=== PATIENT | female | born 1945 | race Caucasian/White ===

== ENCOUNTER → 2017-03-16 | Outpatient (CLI) | payer OTHER, BC ==
[~2017-03-16] MED LIST: HYDROCODONE-AP1 EAC6 PO; KEFLEX500 MG PO; LIDODERM 5%1 PATC1 TRANSDERM; NORCO 5-325 TA1 EACH PO
== END ==
LOC: ULTRA 07:57
DX: E04.1 Nontoxic single thyroid nodule (principal)

== ENCOUNTER 2018-06-17 09:49 | Emergency (ER) | payer OTHER, BC ==
[~2018-06-17] VITALS: Ht 165.1 cm; Wt 56.2 kg
[2018-06-17 11:25] VITALS: BP 118/69
== END 2018-06-17 11:25 | disposition home or self-care (01) ==
LOC: ER 09:49
DX: S22.32XA Fracture of one rib, left side, initial encounter for closed fracture (principal); Z90.710 Acquired absence of both cervix and uterus; F17.210 Nicotine dependence, cigarettes, uncomplicated; W22.09XA Striking against other stationary object, initial encounter; Y93.89 Activity, other specified; Y92.89 Other specified places as the place of occurrence of the external cause; Y99.8 Other external cause status

== ENCOUNTER 2020-04-08 13:49 | Emergency (ER) | payer OTHER, BC ==
[~2020-04-08] VITALS: Ht 162.6 cm; Wt 57.1 kg
[2020-04-08 14:22] LABS: ABSOLUTE NEUTROPHILS 2.8 thou/uL (1.4-8.2); BASOPHILS 0.6 % (0.0-2.0); EOSINOPHILS 1.3 % (0.0-3.0); HEMATOCRIT 43.9 % (37.0-47.0); HEMOGLOBIN 14.8 gm/dL (12.0-15.0); LYMPHOCYTES 38.8 % (24.0-44.0); MCH 32.3 pg (26.0-34.0); MCHC 33.7 g/dL (28.0-37.0); MONOCYTES 8.5 % (1.0-8.0); PLATELET COUNT 237 thou/uL (150-400); POLYS 50.8 % (36.0-66.0); RBC 4.57 mil/uL (4.20-5.00); RDW 13.2 % (10.5-14.5); WBC 5.5 thou/uL (4.0-11.0)
[2020-04-08 14:55] LABS: ANION GAP 12 mmol/L (7-16); BUN 11 mg/dL (7-18); CALCIUM 9.7 mg/dL (8.5-10.1); CHLORIDE 104 mmol/L (98-107); CO2 22 mmol/L (21-32); CREATININE 0.8 mg/dL (0.6-1.0); GLUCOSE 109 mg/dL (74-106); SODIUM 138 mmol/L (136-145)
[2020-04-08 15:05] LABS: ALBUMIN 4.1 g/dL (3.4-5.0); LIPASE 246 U/L (73-393); SGOT 17 U/L (15-37); SGPT 19 U/L (30-65); TOTAL BILIRUBIN 0.5 mg/dL (0.2-1.0); TOTAL PROTEIN 7.4 g/dL (6.4-8.2); TROPONIN-I <0.06 ng/mL (<0.06)
--- NOTE | 2020-04-08 16:27 | EKG ---
[facility] [place] [address] ELECTROCARDIOGRAM REPORT Name: DIAMANTE ALSTON Room #: [facility]#: [id number] Admission: 04/08/20 Attend Phys: Discharge: Date of : 43 Report #: [id number] THIS REPORT FOR: cc: Benito Torres MD, Neal A. 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 : 1945 Requested By: Vish Jackson Order Number: [id number] MD: Karl Brewster Measurements Intervals [place] Rate: 59 P: 74 [place]: 134 QRS: -51 QRSD: 151 T: 25 QT: 471 QTc: 467 Interpretive Statements Sinus rhythm Probable left atrial enlargement RBBB and LAFB Compared to ECG 08/31/2016 20:38:08 No significant changes Electronically Signed On 04-08-2020 16:27:02 PARTS CATALOGER by Karl Brewster [email or web address] <ELECTRONICALLY SIGNED> By: Karl Brewster MD, FACC 04/08/20 1627 1440 1440 Karl Brewster MD, [facility] /EPI
[2020-04-08 16:38] VITALS: BP 117/53
== END 2020-04-08 16:38 | disposition home or self-care (01) ==
LOC: ER 13:49
PROVIDERS: Emergency Medicine
DX: R10.84 Generalized abdominal pain (principal); F17.210 Nicotine dependence, cigarettes, uncomplicated; Z90.710 Acquired absence of both cervix and uterus

== ENCOUNTER 2020-12-14 17:58 | Emergency (ER) | payer OTHER, BC ==
[~2020-12-14] VITALS: Ht 165.1 cm; Wt 56.7 kg
[2020-12-14] MEDS ORDERED: CRESTOR5 MG PO (18:07)
[2020-12-14 19:06] LABS: URINE BILIRUBIN NEGATIVE (Negative); URINE BLOOD NEGATIVE (Negative); URINE CLARITY CLEAR; URINE COLOR YELLOW; URINE GLUCOSE-RANDOM* NEGATIVE (Negative); URINE KETONES NEGATIVE (Negative); URINE LEUKOCYTES-REFLEX TRACE (Negative); URINE NITRITE-REFLEX NEGATIVE (Negative); URINE PROTEIN (DIPSTICK) NEGATIVE (Negative); URINE SPECIFIC GRAVITY <= 1.005 (1.005-1.035); URINE UROBILINOGEN 0.2 E.U./dl (0.2-1.0)
[2020-12-14 19:23] LABS: BASOPHILS 1.2 % (0.0-2.0); EOSINOPHILS 2.6 % (0.0-3.0); HEMOGLOBIN 13.1 gm/dL (12.0-15.0); LYMPHOCYTES 29.2 % (24.0-44.0); MCH 32.7 pg (26.0-34.0); MCHC 34.4 g/dL (28.0-37.0); MCV 94.8 fL (80.0-100.0); MONOCYTES 9.7 % (1.0-8.0); PLATELET COUNT 192 thou/uL (150-400); POLYS 57.3 % (36.0-66.0); RBC 4.01 mil/uL (4.20-5.00); RDW 13.3 % (10.5-14.5); WBC 5.2 thou/uL (4.0-11.0)
[2020-12-14 19:52] LABS: ALBUMIN 2.3 g/dL (3.4-5.0); CALCIUM 6.4 mg/dL (8.5-10.1); CREATININE 0.6 mg/dL (0.6-1.0)
[2020-12-14 19:57] LABS: POTASSIUM 2.8 mmol/L (3.5-5.1)
[2020-12-14 20:08] LABS: TOTAL BILIRUBIN 0.2 mg/dL (0.2-1.0); TOTAL PROTEIN 4.6 g/dL (6.4-8.2)
[2020-12-14] MEDS ORDERED: POTASSIUM20 PO (21:26)
[2020-12-14 21:43] VITALS: BP 135/63
--- NOTE | 2020-12-15 07:28 | EKG ---
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
== END 2020-12-14 21:45 | disposition home or self-care (01) ==
LOC: ER 17:58
PROVIDERS: Emergency Medicine
DX: R10.32 Left lower quadrant pain (principal); Z20.822 Contact with and (suspected) exposure to COVID-19; E87.6 Hypokalemia; E78.00 Pure hypercholesterolemia, unspecified; F17.210 Nicotine dependence, cigarettes, uncomplicated; Z90.711 Acquired absence of uterus with remaining cervical stump; Z79.899 Other long term (current) drug therapy

== ENCOUNTER → 2021-01-07 | Outpatient (CLI) | payer OTHER, BC ==
[~2021-01-07] MED LIST changes: +CRESTOR5 MG PO; +POTASSIUM20 PO
== END ==
LOC: MRI 12-24 12:31
PROVIDERS: ATTEND Family Medicine
DX: S22.000A Wedge compression fracture of unspecified thoracic vertebra, initial encounter for closed fracture (principal); M47.814 Spondylosis without myelopathy or radiculopathy, thoracic region; X58.XXXA Exposure to other specified factors, initial encounter; Y92.89 Other specified places as the place of occurrence of the external cause; Y93.89 Activity, other specified; Y99.8 Other external cause status